=== PATIENT | male | born 1985 | race African-American/Black ===

== ENCOUNTER 2019-04-12 11:32 | Emergency (ER) | payer OTHER ==
[~2019-04-12] VITALS: Ht 172.7 cm; Wt 96.6 kg
[2019-04-12] MEDS ORDERED: B/P MED (11:56)
[2019-04-12 12:28] LABS: URINE BILIRUBIN NEGATIVE (Negative); URINE BLOOD NEGATIVE (Negative); URINE CLARITY CLEAR; URINE COLOR YELLOW; URINE GLUCOSE-RANDOM NEGATIVE (Negative); URINE KETONES NEGATIVE (Negative); URINE LEUKOCYTES-REFLEX NEGATIVE (Negative); URINE NITRITE-REFLEX NEGATIVE (Negative); URINE PROTEIN NEGATIVE (Negative); URINE SPECIFIC GRAVITY 1.025 (1.005-1.030); URINE UROBILINOGEN 0.2 E.U./dl (0.2-1.0)
[2019-04-12] MEDS ORDERED: DOXYCYCLINE 10100 M2 PO (12:40)
[2019-04-12 12:57] VITALS: BP 132/93
== END 2019-04-12 12:57 | disposition home or self-care (01) ==
LOC: M.ERS 11:32
PROVIDERS: Emergency Medicine Emergency Medical Services
DX: N34.2 Other urethritis (principal); I10 Essential (primary) hypertension